=== PATIENT | female | born 1985 | race African-American/Black ===

== ENCOUNTER 2018-11-14 17:30 | Inpatient (IN) | payer BC ==
[2018-11-14] MEDS ORDERED: TUBERCULIN PPD 5 TU/0.1ML SYRINGE (IN PATIENT USE ONLY) ID ONE (17:53)
[2018-11-14 18:14] VITALS: BMI 31.0
[2018-11-14 19:46] LABS: BASO % 0.2 % (0-2.0); EOS % 0.4 % (0-4.5); HEMATOCRIT 34.7 % (32.4-45.2); HEMOGLOBIN 11.6 GM/dL (10.7-15.3); LYMPH % 16.8 % (8-40); MCH 31.3 pg (25.7-33.7); MCHC 33.5 g/dl (32.0-36.0); MEAN CELL VOLUME 93.5 fl (80-96); MEAN PLT VOLUME 9.7 fl (7.5-11.1); MONO % 7.2 % (3.8-10.2); NEUT % 75.4 % (42.8-82.8); PLATELET COUNT 188 K/MM3 (134-434); RBC 3.71 M/mm3 (3.60-5.2); RDW 15.1 % (11.6-15.6); WHITE BLOOD COUNT 9.4 K/mm3 (4.0-10.0)
[2018-11-14 20:02] LABS: INR 0.93 (0.83-1.09)
[2018-11-14 20:06] LABS: CALCIUM 9.2 mg/dL (8.5-10.1); CREATININE 0.9 mg/dL (0.55-1.3); POTASSIUM 3.9 mmol/L (3.5-5.1)
[2018-11-14] MEDS: DEXTROSE 5%-LACTATED RINGERS 1,000 ML IV SCH (20:40)
[2018-11-14] MEDS ORDERED: DINOPROSTONE 10 MG VAGINAL SUPPOSITORY VG ONE (20:45)
--- NOTE | 2018-11-14 21:11 | HP ---
Past Medical History - Primary Care Physician PCP:: Nisha Padgett - Admission Chief Complaint: 33yo @ 40.4wks presents for IOL, no VB, no LOC, report irregular ctx, +FM History of Present Illness: 1. Sickle Cell carrier - FOB negative 2. Partner HSV pos - She is on Valtrex, never had an outbreak History Source: Patient Limitations to Obtaining History: No Limitations - Past Medical History Reproductive: Yes: Other (Uretheral diverticulum) ...: 2 ...Para: 0 ...Spon : 0 ...Induced : 1 ...LMP: 02/03/18 ...EDC by Dates: 11/10/18 - Past Surgical History Past Surgical History: Yes: Tonsillectomy Hx Myomectomy: No Hx Transabdominal Cerclage: No Additional Surgical History: Uretheral diverticulum - Smoking History Smoking history: Never smoked Have you smoked in the past 12 months: No - Alcohol/Substance Use Hx Alcohol Use: No History of Substance Use: reports: None - Social History ADL: Independent History of Recent Travel: Yes ([facility]) Home Medications - Allergies Allergies/Adverse Reactions: Allergies Allergy/AdvReac Type Severity Reaction Status Date / Time No Known Allergies Allergy Verified 11/14/18 18:15 - Home Medications Home Medications: Ambulatory Orders Ferrous Sulfate [Iron] 325 mg PO DAILY 11/14/18 Tablet 1 tablet PO DAILY 11/14/18 Valacyclovir HCl [Valtrex -] 500 mg PO BID 11/14/18 Family Disease History - Family Disease History Family History: Unremarkable Review of Systems - Review of Systems Constitutional: reports: No Symptoms Eyes: reports: No Symptoms HENT: reports: No Symptoms Neck: reports: No Symptoms Cardiovascular: reports: No Symptoms Respiratory: reports: No Symptoms Gastrointestinal: reports: No Symptoms Genitourinary: reports: No Symptoms Breasts: reports: No Symptoms Reported Musculoskeletal: reports: No Symptoms Integumentary: reports: No Symptoms Neurological: reports: No Symptoms Endocrine: reports: No Symptoms Hematology/Lymphatic: reports: No Symptoms Psychiatric: reports: No Symptoms Pain Intensity: 0 Physical Exam - Maternity Vital Signs: Vital Signs Temperature 99.0 F 11/14/18 17:56 Pulse Rate 109 H 11/14/18 20:00 Respiratory Rate 20 11/14/18 20:00 Blood Pressure 122/79 11/14/18 20:00 O2 Sat by Pulse Oximetry (%) Constitutional: Yes: Well Nourished, No Distress, Calm Eyes: Yes: WNL, Conjunctiva Clear, EOM Intact HENT: Yes: WNL, Atraumatic, Normocephalic Neck: Yes: WNL, Supple, Trachea Midline Cardiovascular: Yes: WNL, Regular Rate and Rhythm Lungs: Clear to auscultation Breast(s): Yes: WNL - Abdominal Exam/OB Fundal Height: 40 (EFW 8lb) Number of Fetuses: Single Presentation: Vertex (by US) Contractions: Yes Regularity: Irregular Intensity: Mild Monitor Mode: External Heart Rate (range): 140 Heart Rate Location: Midline Category: I Accelerations: Uniform Decelerations: None - Vaginal Exam/OB Vaginal Bleediing: No Speculum Exam: No Dilatation (cm): FT Effacement (%): soft Amniotic Membrane Status: Intact Presentation: Vertex/Position Station: -3 - Physical Exam Musculoskeletal: Yes: WNL Extremities: Yes: WNL Edema: No Integumentary: Yes: WNL ...Motor Strength: WNL Psychiatric: Yes: WNL, Alert, Oriented - Labs Lab Results: CBC, BMP 11/14/18 18:30 11/14/18 18:30 Hemorrhage Risk Assessment - Risk Factors Medium Risk Factors: Yes: None High Risk Factors: Yes: None Risk Score: 1 Risk Level: Medium Risk Assessment/Plan admitted for labor induction. Fetus with Category I tracing and requires no intervention. Patient is not in labor and has unfavorable cervix. We discussed the treatment options including Cervidil vs pitocin for labor induction. We discussed the risks and benefits of each option. The patient prefers to proceed with Cervidil for cervical ripening. I explained the risks of failed induction, tacysystole, distress, shoulder dystocia, and/or maternal trauma, hemorrhage, need for section, etc. The pt verbalized her understanding and requested to proceed.
[2018-11-15] MEDS ORDERED: BUTORPHANOL TARTRATE 1 MG/ML VIAL IVPB ONE ×2 (00:30→06:00)
[2018-11-15] MEDS ORDERED: PROMETHAZINE HCL 25 MG/1 ML VIAL IVPB ONE ×2 (00:30→06:00)
[2018-11-15] MEDS ORDERED: SODIUM PHOSPHATE/NA BIPHOS 133 ML ENEMA RC ONE (00:30)
[2018-11-15] MEDS ORDERED: BUTORPHANOL TARTRATE 2 MG/ML VIAL ONE ×2 (01:28→05:19)
[2018-11-15] MEDS ORDERED: PROMETHAZINE HCL 25 MG/1 ML VIAL ONE ×2 (01:28→05:19)
[2018-11-15] MEDS: DEXTROSE 5%-LACTATED RINGERS 1,000 ML IV SCH (05:00)
--- NOTE | 2018-11-15 05:40 | PN ---
Progress Note, Labor Vaginal Exam #1 Labor Exam Date: 11/15/18 Labor Exam Time: 04:00 Heart Rate (range): 140 Dilatation: ft Effacement (%): 20% Amniotic Membrane Status: Intact Presentation: Vertex/Position Station: -3 (Cervidil removed @ 4am Stadol @ 1am Improved FHR varriability will repeat, give second dose Stadol/Phenergan VE c/w Candidaisis - Diflucan 150mg po X 1)
[2018-11-15] MEDS ORDERED: FLUCONAZOLE 150 MG TABLET PO ONE (06:00)
[2018-11-15] MEDS: ELECTROLYTE-148 SOLN 500 ML IV SCH ×2 (07:00→10:30)
[2018-11-15] MEDS ORDERED: BUPIVACAINE HCL/PF 0.25% (2.5MG/ML) 10 ML VIAL ONE (07:06)
[2018-11-15] MEDS ORDERED: FENTANYL/BUPIVACAINE/NS/PF - PCEA - 50 ML DISP.SYRIN EP ONE ×3 (07:08→16:58)
[2018-11-15] MEDS ORDERED: NALOXONE HCL 0.4 MG/ML VIAL IVPUSH PRN (07:09)
[2018-11-15] MEDS: FENTANYL/BUPIVACAINE/NS/PF - PCEA - 50 ML DISP.SYRIN EP SCH (07:45)
[2018-11-15] MEDS ORDERED: ELECTROLYTE-148 SOLN 500 ML IV ONE (09:00)
--- NOTE | 2018-11-15 10:57 | PN ---
Progress Note, Labor Vaginal Exam #2 Labor Exam Date: 11/15/18 Labor Exam Time: 10:50 Heart Rate (range): 140's Dilatation: 4 Effacement (%): 80% Amniotic Membrane Status: Ruptured Presentation: Vertex/Position Station: -3 Remarks: Positive scalp stimulation Category 2 FHR Continue LLD position O2 by face mask Patient comfortable can not continue induction with Pitocin due to Category 2 FHR Overall reassuring Maternal and status
--- NOTE | 2018-11-15 18:34 | PN ---
Ante-Partal Exam - Subjective Subjective: No complaints Vital Signs: Vital Signs Temperature 98.5 F 11/15/18 18:00 Pulse Rate 101 H 11/15/18 18:00 Respiratory Rate 20 11/15/18 18:00 Blood Pressure 128/83 11/15/18 18:00 O2 Sat by Pulse Oximetry (%) 100 11/15/18 18:00 Bleeding: No Headache: No Visual changes: No Right upper quadrant pain: No Pain (scale 1-10): 0 - Contractions Contractions: Yes (q4min) Regularity: Regular Intensity: Mod/Strong Monitor Mode: External - Exam during Labor Heart Rate: 145 Variability: Minimal Heart Rate Location: Midline Category: II Monitor Accelerations: Present (scalp stim done at 5:55pm) Monitor Decelerations: Early Exam: Vaginal Dilatation (cm): 4 Effacement (%): 70 Amniotic Membrane Status: Leaking Amniotic Fluid: Clear Presentation: Vertex Station: -3 - Intrapartum Hemorrhage Risk Medium Risk Factors: None High Risk Factors: None Risk Score: 0 Risk Level: Low Risk - Assessment/Plan Assessment/Plan: 33yo P0 with arrest of dilation at 4cm. The tracing is Category II with minimal variability but scalp stimulation is present. At this point the patient was offered to proceed with a C/S delivery. We discussed the risks and benefits of C/S at length, including but not limited to scarring, pain, bleeding, infection, injury to underlying organs and structures, need for additional surgery to repair/treat any problems or complications, complications/ injuries, etc. The pt verbalized her understanding and requested to proceed with surgery. The pt is aware that all surgeries have risks and no guarantees can be provided.
[2018-11-15] MEDS ORDERED: CITRIC ACID/SODIUM CITRATE 30 ML UNIT-DOSE CUP PO ONE (18:35)
[2018-11-15] MEDS ORDERED: LIDO 2%/EPI 1:200000 PRESRVFRE (20 ML SDVIAL) ONE (18:36)
[2018-11-15] MEDS ORDERED: ceFAZolin SODIUM 1 GM VIAL ONE (18:40)
[2018-11-15] MEDS ORDERED: OXYTOCIN 10 UNITS/ML VIAL ONE ×2 (19:12→19:20)
[2018-11-15] MEDS ORDERED: morphine SULFATE/Preservative Free 0.5 MG/ML (1cc Syringe) ONE ×3 (19:16→19:35)
[2018-11-15] MEDS ORDERED: ONDANSETRON 4 MG/2 ML VIAL IVPUSH PRN ×2 (19:30→19:39)
[2018-11-15] MEDS ORDERED: morphine SULFATE/Preservative Free 0.5 MG/ML (1cc Syringe) EP ONE ×2 (19:30→19:39)
[2018-11-15] MEDS ORDERED: MEPERIDINE HCL 25 MG/ML VIAL IVPUSH ONE (19:58)
[2018-11-15 20:06] LABS: ARTERIAL BLD GAS O2 SATURATION 17.6 % (95-98); ARTERIAL BLOOD GAS BASE EXCESS -3.6 meq/l (-2-2); ARTERIAL BLOOD GAS PCO2 59.9 mmHg (35-45); ARTERIAL BLOOD GAS pH 7.24 (7.35-7.45)
[2018-11-15 20:08] LABS: VENOUS PC02 44.6 mmHg (41-51); VENOUS PH 7.33 (7.31-7.41)
[2018-11-15 20:11] LABS: ARTERIAL BLOOD GAS PO2 14.6 mmHg (80-105); VENOUS PO2 26.5 mmHg (30-40)
--- NOTE | 2018-11-15 20:23 | OP ---
Operative Note - Note: Operative Date: 11/15/18 Pre-Operative Diagnosis: at [id number], Arrest of dilation Operation: Primary LT C/S Findings: Live baby girl in vtx presentation, no meconium, normal placenta, 9-9, wt 8lb 6oz. Normal ut/tubes/ovaries. Post-Operative Diagnosis: Same as Pre-op Surgeon: Bam Bello Automation Software Engineer: Tc Costello Anesthesiologist/PUBLIC STENOGRAPHER: [place] Anesthesia: Epidural Specimens Removed: Placenta Estimated Blood Loss (mls): 700 Drains & Tubes with Location: Joshua cath Drains, Volume Out (mls): 200 Blood Volume Replaced (mls): 0 Fluid Volume Replaced (mls): 1,400 Operative Report Dictated: Yes
[2018-11-15] MEDS ORDERED: SENNOSIDES/DOCUSATE COMBO (SENNA PLUS) TABLET (UD) PO PRN (20:30)
[2018-11-15] MEDS ORDERED: METHYLERGONOVINE MALEATE 0.2 MG/1 ML AMP IM PRN (20:30)
[2018-11-15] MEDS ORDERED: ACETAMINOPHEN 1000 MG/100 ML VIAL (NON FORMULARY) IVPB ONE (21:00)
[2018-11-15] MEDS ORDERED: OXYTOCIN 20 UNITS in 0.9% NS 20 UNIT/1,000 ML INFUS.BAG IV ONE (21:01)
--- NOTE | 2018-11-15 21:05 | OP ---
DATE OF OPERATION: 11/15/2018 PREOPERATIVE DIAGNOSES: at estimated gestational age of 40 weeks and 5 days, arrest of dilation. POSTOPERATIVE DIAGNOSES: at estimated gestational age of 40 weeks and 5 days, arrest of dilation, delivered. PROCEDURE: Primary low transverse section via Pfannenstiel skin incision. SURGEON: Bam Bello MD TELEVISION SPECIALIST: Tc Costello MD ANESTHESIA: Epidural. ANESTHESIOLOGIST: Cesario Mayfield MD COMPLICATIONS: None. ESTIMATED BLOOD LOSS: 700 mL. INTRAVENOUS FLUIDS: 1400 mL. URINE OUTPUT: Clear urine 200 mL at the end of the procedure. PATHOLOGY: Placenta. FINDINGS: Live baby girl in vertex presentation. No meconium in amniotic fluids. Apgars 9 and 9. Normal placenta. Baby's weight is 8 pounds and 6 ounces. Normal uterus, tubes, and ovaries. PROCEDURE DESCRIPTION: The patient was met preoperatively. Risks, benefits, and alternatives of surgery were discussed in details. All questions were answered. The patient was then brought to the OR with the IV running. She was placed on the surgical table in a supine position. The epidural anesthesia was bolused to a desired level. The Joshua catheter was left to drain to gravity. The patient was then prepped and draped in the usual sterile fashion. A timeout was conducted as per standard protocol. The surgeons then proceeded with the operation. A Pfannenstiel skin incision was made with a knife approximately 2 cm above the pubic symphysis. The incision was taken down to the level of fascia. The fascia was incised in the midline, and the incision was extended bilaterally using Romero scissors. The fascia was dissected away from the rectus muscles superiorly and inferiorly. The rectus muscles were in the midline using blunt dissection. The peritoneum was identified and entered sharply. The peritoneal incision was extended superiorly and inferiorly. The bladder peritoneum was dissected away from the lower uterine segment using sharp dissection. The bladder was reflected downwards using a Belfour retractor. The lower uterine segment was incised transversely, and the incision was extended bilaterally using bandage scissors. The baby was delivered from vertex presentation without complications. The baby's nose and mouth were suctioned, and the baby began crying spontaneously. The umbilical cord was clamped and cut. The baby was handed to the waiting band machine operator. The placenta was delivered manually and without complications. The uterus was cleared of all clots and debris. The uterine incision was repaired using a 0 Biosyn suture with a running locking stitch. Good hemostasis was noted. The uterine incision was then imbricated using a secondary layer of closure with 0 Biosyn suture. The bladder peritoneum was reapproximated using a 2-0 chromic suture. The operative site was copiously irrigated with normal saline. The saline was aspirated, and good hemostasis was confirmed. The parietal peritoneum was then closed with a 2-0 chromic suture. The rectus muscles were approximated in the midline using several interrupted 2-0 chromic sutures. The fascia was closed with 0 Vicryl suture in a running stitch. The subcutaneous adipose tissues and Luis fascia were approximated using several interrupted 0 Vicryl sutures. The skin was closed with a 4-0 Vicryl suture using subcutaneous stitch. Sponge, lap, needle counts were correct. The patient was transferred to recovery room in stable condition and awake. Naldo ESPINOZA/[id number]
[2018-11-15] MEDS ORDERED: ACETAMINOPHEN INJECTION 100 ML IVPB ONE (21:14)
[2018-11-15] MEDS: OXYTOCIN 20 UNITS in 0.9% NS 20 UNIT/1,000 ML INFUS.BAG IV SCH (21:29)
[2018-11-15] MEDS ORDERED: CLINDAMYCIN PHOSPHATE 600 MG/4 ML VIAL ONE (21:35)
[2018-11-15] MEDS: CLINDAMYCIN 900 MG PREMIX IVPB 900 MG/50 ML BAG IVPB SCH (21:40)
[2018-11-15] MEDS ORDERED: CLINDAMYCIN 900 MG PREMIX IVPB 900 MG/50 ML BAG IVPB SCH (22:00)
[2018-11-15] MEDS: GENTAMICIN IVPB SCH (23:39)
[2018-11-15] MEDS: WATER IVPB SCH (23:39)
[2018-11-15] MEDS: DEXTROSE 5% IVPB SCH (23:39)
[2018-11-16] MEDS: CLINDAMYCIN 900 MG PREMIX IVPB 900 MG/50 ML BAG IVPB SCH ×3 (04:32→18:58)
--- NOTE | 2018-11-16 07:08 | PN ---
Delivery - Delivery Section: Primary, Low Flap Transverse Type of Anesthesia: Epidural Episiotomy/Laceration: None EBL (cc): 700 Delivery, Single - Stages of Labor Date 1st Stage Initiatied: 11/15/18 Time 1st Stage Initiated: 00:00 Date of Delivery: 11/15/18 Time of Delivery: 19:14 Date Placenta Delivered: 11/15/18 Time Placenta Delivered: 19:15 Placenta: Yes: Expressed, Normal Configuration - Condition of Infant Duplicate Maker/Leader Tier Present: Yes Name: Jan Cruz Infant Gender: Female Weight: 3.799 kg Position: Right, OT Total Hours ROM (Hrs/Mins): 12hrs 30min - 1 Minute Total Score: 9 5 Minutes Total Score: 9 - Feeding Plan Initial Plan: Exclusive throughout hospitalization Benefits of Exclusively reinforced: Yes Remarks - Remarks Remarks: Uncomplicated C/S
[2018-11-16] MEDS: IBUPROFEN 800 MG/8 ML IJ IVPB PRN ×2 (07:56→16:20)
--- NOTE | 2018-11-16 07:57 | PN ---
Post Progress Note - Subjective Subjective: Patient without acute complaints. Reports tolerating oral intake without nausea or vomiting. Ambulating without dizziness. Denies fevers or chills. Pain well controlled with oral pain medication. Pumping/breast feeding without issue. Passing flatus, no BM. Post Day: 1 Type of Delivery: Primary C/S Vital Signs: Vital Signs Temperature 98.9 F 11/16/18 05:00 Pulse Rate 100 H 11/16/18 05:00 Respiratory Rate 18 11/16/18 07:49 Blood Pressure 124/75 11/16/18 05:00 O2 Sat by Pulse Oximetry (%) 100 11/15/18 21:30 Breast Exam: Yes: Soft Uterus: Yes: Fundus Firm, Non-tender Incision: Yes: Dressing dry and intact Abdomen/GI: Yes: Abdomen soft, Tolerating PO Lochia: Yes: Rubra Lochia, amount: Small Extremities: Yes: Calves non-tender Perineum: Yes: Intact Activity: Ambulating - Labs Labs: CBC WBC 9.4 K/mm3 (4.0-10.0) 11/14/18 18:30 RBC 3.71 M/mm3 (3.60-5.2) 11/14/18 18:30 Hgb 11.6 GM/dL (10.7-15.3) 11/14/18 18:30 Hct 34.7 % (32.4-45.2) 11/14/18 18:30 MCV 93.5 fl (80-96) 11/14/18 18:30 MCH 31.3 pg (25.7-33.7) 11/14/18 18:30 MCHC 33.5 g/dl (32.0-36.0) 11/14/18 18:30 RDW 15.1 % (11.6-15.6) D 11/14/18 18:30 Plt Count 188 K/MM3 (134-434) 11/14/18 18:30 MPV 9.7 fl (7.5-11.1) D 11/14/18 18:30 Absolute Neuts (auto) 7.1 K/mm3 (1.5-8.0) 11/14/18 18:30 Neutrophils % 75.4 % (42.8-82.8) 11/14/18 18:30 Lymphocytes % 16.8 % (8-40) 11/14/18 18:30 Monocytes % 7.2 % (3.8-10.2) 11/14/18 18:30 Eosinophils % 0.4 % (0-4.5) 11/14/18 18:30 Basophils % 0.2 % (0-2.0) 11/14/18 18:30 Nucleated RBC % 0 % (0-0) 11/14/18 18:30 Assessment/Plan 33yo P1 s/p primary LT C/S, doing well stable, afebrile. The pt is asymptomatic for s/sxs of anemia. care instructions reviewed. Continue routine postop care. Ambulation encouraged.
[2018-11-16 08:10] LABS: BASO % 0.4 % (0-2.0); EOS % 0.1 % (0-4.5); HEMATOCRIT 30.7 % (32.4-45.2); HEMOGLOBIN 10.5 GM/dL (10.7-15.3); LYMPH % 8.2 % (8-40); MCH 31.5 pg (25.7-33.7); MEAN CELL VOLUME 92.5 fl (80-96); MEAN PLT VOLUME 8.9 fl (7.5-11.1); NEUT % 84.3 % (42.8-82.8); PLATELET COUNT 172 K/MM3 (134-434); RBC 3.32 M/mm3 (3.60-5.2); RDW 15.2 % (11.6-15.6); WHITE BLOOD COUNT 14.2 K/mm3 (4.0-10.0)
[2018-11-16] MEDS: ENOXAPARIN NA (PORCINE) 40 MG/0.4 ML DISP.SYRIN SQ SCH (10:38)
--- NOTE | 2018-11-16 11:43 | PN ---
Progress Note (short form) - Note Progress Note: Anesthesia POD#1 S/P epidural and Duramorph VSS,nausea went away,no pain,legs are strong. Nelida Fabian MD.
[2018-11-16] MEDS ORDERED: BISACODYL 10 MG SUPP.RECT RC PRN ×2 (17:15→20:30)
[2018-11-16] MEDS: WATER IVPB SCH (22:15)
[2018-11-16] MEDS: GENTAMICIN IVPB SCH (22:15)
[2018-11-16] MEDS: DEXTROSE 5% IVPB SCH (22:15)
[2018-11-16] MEDS: ACETAMINOPHEN 325 MG TABLET (FP) PO PRN (23:16)
[2018-11-16] MEDS: IBUPROFEN 600 MG TABLET (FP) PO PRN (23:16)
[2018-11-16] MEDS: SIMETHICONE 80 MG TAB.CHEW (FP) PO PRN (23:17)
[2018-11-17] MEDS: DEXTROSE 5%-LACTATED RINGERS 1,000 ML IV SCH ×2 (00:08→00:10)
[2018-11-17] MEDS: OXYTOCIN 20 UNITS in 0.9% NS 20 UNIT/1,000 ML INFUS.BAG IV SCH (00:12)
[2018-11-17] MEDS: FENTANYL/BUPIVACAINE/NS/PF - PCEA - 50 ML DISP.SYRIN EP SCH (00:12)
[2018-11-17] MEDS: ELECTROLYTE-148 SOLN 500 ML IV SCH (00:12)
[2018-11-17] MEDS: CLINDAMYCIN 900 MG PREMIX IVPB 900 MG/50 ML BAG IVPB SCH (02:08)
[2018-11-17] MEDS: ACETAMINOPHEN 325 MG TABLET (FP) PO PRN ×4 (02:20→21:00)
[2018-11-17] MEDS: oxyCODONE HCL 5 MG TABLET PO PRN ×2 (02:20→23:15)
--- NOTE | 2018-11-17 07:38 | PN ---
Post Progress Note - Subjective Subjective: Patient without acute complaints. Reports tolerating oral intake without nausea or vomiting. Ambulating without dizziness. Denies fevers or chills. Pain well controlled with oral pain medication. without difficulty. Passing flatus. Type of Delivery: Primary C/S Vital Signs: Vital Signs Temperature 98.2 F 11/16/18 22:00 Pulse Rate 95 H 11/16/18 22:00 Respiratory Rate 18 11/16/18 22:00 Blood Pressure 135/70 11/16/18 22:00 O2 Sat by Pulse Oximetry (%) 100 11/15/18 21:30 - Labs Labs: CBC WBC 14.2 K/mm3 (4.0-10.0) H 11/16/18 07:55 RBC 3.32 M/mm3 (3.60-5.2) L 11/16/18 07:55 Hgb 10.5 GM/dL (10.7-15.3) L 11/16/18 07:55 Hct 30.7 % (32.4-45.2) L 11/16/18 07:55 MCV 92.5 fl (80-96) 11/16/18 07:55 MCH 31.5 pg (25.7-33.7) 11/16/18 07:55 MCHC 34.0 g/dl (32.0-36.0) 11/16/18 07:55 RDW 15.2 % (11.6-15.6) 11/16/18 07:55 Plt Count 172 K/MM3 (134-434) 11/16/18 07:55 MPV 8.9 fl (7.5-11.1) 11/16/18 07:55 Absolute Neuts (auto) 12.0 K/mm3 (1.5-8.0) H 11/16/18 07:55 Neutrophils % 84.3 % (42.8-82.8) H 11/16/18 07:55 Lymphocytes % 8.2 % (8-40) D 11/16/18 07:55 Monocytes % 7.0 % (3.8-10.2) 11/16/18 07:55 Eosinophils % 0.1 % (0-4.5) 11/16/18 07:55 Basophils % 0.4 % (0-2.0) 11/16/18 07:55 Nucleated RBC % 0 % (0-0) 11/16/18 07:55 Assessment/Plan 33 yo POD # 2 s/p 1 CD, afebrile, mild asymptomatic anemia, doing well 1. on gent/sudhakar for chorioamnionitis - afebrile, mild tachycarida 2. Will continue routine postoperative care. 3. Encourage ambulation and incentive spirometer use 4. Continue oral pain medication 5. Anticipate discharge home postoperative day #3 or #4 pending vital signs stable and fulfilling all criteria for discharge
[2018-11-17] MEDS: SIMETHICONE 80 MG TAB.CHEW (FP) PO PRN ×3 (08:48→23:16)
[2018-11-17] MEDS: IBUPROFEN 600 MG TABLET (FP) PO PRN ×3 (08:48→21:00)
[2018-11-17] MEDS: ENOXAPARIN NA (PORCINE) 40 MG/0.4 ML DISP.SYRIN SQ SCH (09:44)
--- NOTE | 2018-11-17 17:31 | PATH ---
Surgical Pathology Report Patient Name: BERNIE AGUDELO Med. Rec. #: [id number] /Age/Gender: 1985 (Age: 33) / F Account: [id number] Location: [facility] OBS/SENIOR OFFICER Taken: 11/15/2018 Received: 11/16/2018 Reported: 11/17/2018 Physicians: Bam Bello M.D. Specimen(s) Received PLACENTA Clinical History 40 weeks 5 days arrest for dilation Final Diagnosis PLACENTA, SECTION: 471 G THIRD TRIMESTER PLACENTA WITH TRIVASCULAR UMBILICAL CORD AND UNREMARKABLE PLACENTAL MEMBRANES. Electronically Signed Bonnie Zeng M.D. Gross Description The specimen is received fresh labeled placenta and is a 471 gram, 19 x17 x 2.1cm. placenta with attached membranes and umbilical cord. The attached membranes are glistening, translucent, and insert marginally. The umbilical cord measures 12 cm. in length and averages 1.1 cm. in diameter. The cord inserts centrally, 7 centimeter to the nearest margin. No true knots or strictures are identified. Cut surface of the umbilical cord reveals 3 vessels. Sectioning reveals red-brown, spongy parenchyma. No lesions are identified. Relief Man sections are submitted in three cassettes as follows: 1- membrane rolls and umbilical cord; 2-3- full thickness sections of placenta KWS/11/16/2018 sulki/11/16/2018
[2018-11-18] MEDS: IBUPROFEN 600 MG TABLET (FP) PO PRN (06:17)
[2018-11-18 08:05] LABS: BASO % 0.3 % (0-2.0); EOS % 1.3 % (0-4.5); HEMATOCRIT 27.6 % (32.4-45.2); HEMOGLOBIN 9.5 GM/dL (10.7-15.3); LYMPH % 13.1 % (8-40); MCH 31.7 pg (25.7-33.7); MCHC 34.3 g/dl (32.0-36.0); MEAN CELL VOLUME 92.3 fl (80-96); MEAN PLT VOLUME 8.2 fl (7.5-11.1); MONO % 6.5 % (3.8-10.2); NEUT % 78.8 % (42.8-82.8); PLATELET COUNT 208 K/MM3 (134-434); RBC 2.99 M/mm3 (3.60-5.2); WHITE BLOOD COUNT 12.3 K/mm3 (4.0-10.0)
--- NOTE | 2018-11-18 08:10 | DS ---
Physical Exam-POWER GENERATION [employer] ROOM OPERATOR Vital Signs: Vital Signs Temperature 98.2 F 11/17/18 22:00 Pulse Rate 101 H 11/17/18 22:00 Respiratory Rate 18 11/17/18 22:00 Blood Pressure 127/72 11/17/18 22:00 O2 Sat by Pulse Oximetry (%) 100 11/15/18 21:30 Constitutional: Yes: Well Nourished, No Distress, Calm Eyes: Yes: WNL HENT: Yes: WNL Neck: Yes: WNL Cardiovascular: Yes: WNL, Regular Rate and Rhythm Respiratory: Yes: WNL, Regular, CTA Bilaterally Gastrointestinal: Yes: WNL, Normal Bowel Sounds, Soft Renal/: Yes: WNL Pelvis: Yes: WNL External Genitalia: Yes: Normal Vaginal Exam: Yes: Normal ....Post : Yes: Uterus firm, Uterus non-tender Breast(s): Yes: WNL Musculoskeletal: Yes: WNL Extremities: Yes: WNL Integumentary: Yes: WNL Wound/Incision: Yes: Clean/Dry, Well Approximated Neurological: Yes: WNL, Alert, Oriented ...Motor Strength: WNL Psychiatric: Yes: WNL, Alert, Oriented Labs: CBC, BMP 11/14/18 18:30 Delivery - Delivery Section: Primary, Low Flap Transverse Type of Anesthesia: Epidural Episiotomy/Laceration: None EBL (cc): 700 Delivery, Single - Stages of Labor Date 1st Stage Initiatied: 11/15/18 Time 1st Stage Initiated: 00:00 Date of Delivery: 11/15/18 Time of Delivery: 19:14 Time Placenta Delivered: 19:15 Placenta: Yes: Expressed, Normal Configuration - Condition of Infant Housekeeping Assistant/Outpatient Dietitian Present: Yes Name: Jan Cruz Gender: Female Weight: 8 lb 6 oz Position: Right, OT Total Hours ROM (Hrs/Mins): 12hrs 30min - 1 Minute Total Score: 9 5 Minutes Total Score: 9 - Feeding Plan Initial Plan: Exclusive throughout hospitalization Benefits of Exclusively reinforced: Yes Discharge Summary Reason For Visit: INDUCTION OF LABOR Condition: Good - Instructions Diet, Activity, Other Instructions: Physical activity Resume your normal everyday activity as tolerated no heavy lifting or exercise until seen by your surgeon. You may walk unlimited manuel of and climb stairs. You may resume driving the car when you feel safe and comfortable behind the wheel. No sexual activity as instructed. Wound care If you have a bandage, leave it on, and keep dry for 48-72 hours. After that time discard the outer bandage. If they are tapes on the skin under the out of bandage leave them in place. They will peel off in the next 7 to 10 days. Do Not Peel them off. You may shower the day after surgery. If there are tapes present on the skin, you may shower over them. Diet There are no dietary restrictions. Eat healthy, high-fiber foods. Drink 6 to 8 glasses of liquid each day. This will assist in keeping your bowels are regular. Pain management You may take Tylenol or acetaminophen or Ibuprofen (for example, Motrin, Advil etc.) from my pain prescription medication is ordered should be taken as prescribed for moderate to severe pain. Call MD for any of the following: Severe pain not relieved by medication Fever of 101 or higher Excessive bleeding or drainage on dressing Inability to urinate Referrals: Bam Bello MD [Staff Physician] - Disposition: HOME - Home Medications Comprehensive Discharge Medication List: Ambulatory Orders Ferrous Sulfate [Iron] 325 mg PO DAILY 11/14/18 Tablet 1 tablet PO DAILY 11/14/18 Valacyclovir HCl [Valtrex -] 500 mg PO BID 11/14/18
[2018-11-18] MEDS: oxyCODONE HCL 5 MG TABLET PO PRN (08:17)
[2018-11-18] MEDS: ACETAMINOPHEN 325 MG TABLET (FP) PO PRN (08:18)
[2018-11-18] MEDS: SIMETHICONE 80 MG TAB.CHEW (FP) PO PRN (08:19)
[2018-11-18 08:54] VITALS: BP 133/73; PULSE 95; TEMP 98.6
[2018-11-18] MEDS: ENOXAPARIN NA (PORCINE) 40 MG/0.4 ML DISP.SYRIN SQ SCH (09:25)
== END 2018-11-18 11:35 | disposition home or self-care (01) | DRG 786 ==
LOC: JLDR 17:30 → J3W 11-15 22:20
PROVIDERS: ADMIT Obstetrics & Gynecology; ATTEND Obstetrics & Gynecology
PROC: 3E0P7VZ Introduction of Hormone into Female Reproductive, Via Natural or Artificial Opening (ICD-10-PCS; 2018-11-14)
PROC: 10D00Z1 Extraction of Products of Conception, Low, Open Approach (ICD-10-PCS; principal; 2018-11-15)
DX: O48.0 Post-term pregnancy (principal); O41.1230 Chorioamnionitis, third trimester, not applicable or unspecified; O98.313 Other infections with a predominantly sexual mode of transmission complicating pregnancy, third trimester; O98.813 Other maternal infectious and parasitic diseases complicating pregnancy, third trimester; O62.1 Secondary uterine inertia; B37.3 Candidiasis of vulva and vagina; O99.013 Anemia complicating pregnancy, third trimester; D57.3 Sickle-cell trait; A60.09 Herpesviral infection of other urogenital tract; O99.02 Anemia complicating childbirth; D64.9 Anemia, unspecified; Z3A.40 40 weeks gestation of pregnancy; Z37.0 Single live birth
CPT/HCPCS: 36415; 36600; 80048; 82803; 85025; 85610; 85730; 86593; 86850; 86900; 86901; 88307-TC; J0131